=== PATIENT | female | born 1950 | race Caucasian/White ===

== ENCOUNTER 2018-01-09 12:13 | Emergency (ER) | payer OTHER, MEDICAID ==
[2018-01-09 12:23] VITALS: BP 133/92
--- NOTE | 2018-01-09 13:27 | EDPHY ---
H & P Time Seen by Provider: 01/09/18 13:27 HPI/ROS: Chief complaint. Pill stuck in throat HPI. LWBS ROS 10 systems were reviewed and negative with the exception of the elements mentioned in the history of present illness Smoking Status: Never smoked Constitutional: Initial Vital Signs Temperature (C) 36.6 C 01/09/18 12:20 Heart Rate 73 01/09/18 12:20 Respiratory Rate 18 01/09/18 12:20 Blood Pressure 133/92 H 01/09/18 12:20 O2 Sat (%) 98 01/09/18 12:20 O2 Delivery Mode Room Air Allergies/Adverse Reactions: No Known Allergies Allergy (Verified 01/09/18 12:20) Home Medications: Medication Instructions Recorded Levothyroxine [Synthroid 50 mcg 08/03/11 (RX)] Departure - Departure Referrals: Xochitl Fields MD [Primary Care Provider] - As per Instructions
== END 2018-01-09 13:46 | disposition left against medical advice (07) ==
DX: R09.89 Other specified symptoms and signs involving the circulatory and respiratory systems (principal)